=== PATIENT | male | born 1955 | race Caucasian/White ===

== ENCOUNTER 2017-01-14 16:25 | Emergency (ER) | payer MEDICARE ==
--- NOTE | ~2017-01-14 | CR127 ---
[facility] A Service of [facility] & [facility] RADIOLOGY TEXT RESULTS PATIENT: MAAME MEDINA LOCATION: [facility] : 57 UNIT #: [id number] AGE: [address]: Angelo Antoine MD SEX: M ORDER DR: [id number] [facility] [address] [place], [place] [address] [id number] P MR#: [id number] Acc #: [id number] NAME: MAAME MEDINA : 1955 SEX: M STUDY DATE/TIME: 01/14/2017 17:07 UNIT: [facility] ROOM: STUDY DESCRIPTION: CR Foot Complete Min 3 View Rt Attending Physician: Angelo Antoine M.D. Ordering Physician: Ed Doctor [id number] [facility] Primary Care Physician: Trevor Julio M.D. MEDICAL IMAGING REPORT This report is preliminary unless electronic signature is present EXAM Right foot 3 views HISTORY Foot pain for 1 month. Fell. FINDINGS Three views of the right foot demonstrate normal bone alignment. No fracture, joint space narrowing or dislocation. Minimal degenerative changes at the first MTP joint. IMPRESSION No acute findings Dictated by... Don Gama M.D. THIS IS AN ELECTRONICALLY VERIFIED REPORT Don Gama M.D. at 01/14/2017 11:52 PM DFTerrance/marta TD: 01/14/2017 22:07 JOB #: [id number] MEDICAL IMAGING REPORT Page 1 of 1 COPY
--- NOTE | ~2017-01-14 | CR56 ---
[facility] A Service of [facility] & [facility] RADIOLOGY TEXT RESULTS PATIENT: MAAME MEDINA LOCATION: [facility] : 57 UNIT #: [id number] AGE: [address]: Angelo Antoine MD SEX: M ORDER DR: [id number] [facility] [address]. [place], [place] [address] [id number] P MR#: [id number] Acc #: [id number] NAME: MAAME MEDINA. : 1955 SEX: M STUDY DATE/TIME: 01/14/2017 17:08 UNIT: [facility] ROOM: STUDY DESCRIPTION: CR Calcaneus Min 2 Views Rt Attending Physician: Angelo Antoine M.D. Ordering Physician: [facility] Primary Care Physician: Trevor Julio M.D. MEDICAL IMAGING REPORT This report is preliminary unless electronic signature is present EXAM Right calcaneus 3 views HISTORY Ankle. HISTORY Heel pain after fall 1 month ago. FINDINGS 3 views of the right calcaneus demonstrate satisfactory bone alignment. No fracture or joint space narrowing or dislocation. Small posterior calcaneal spur. IMPRESSION No acute findings. Dictated by... Don Gama M.D. THIS IS AN ELECTRONICALLY VERIFIED REPORT Don Gama M.D. at 01/14/2017 11:52 PM DFL/pcl TD: 01/14/2017 22:08 JOB #: [id number] MEDICAL IMAGING REPORT Page 1 of 1 COPY
--- NOTE | ~2017-01-14 | CR21 ---
[facility] A Service of [facility] RADIOLOGY TEXT RESULTS PATIENT: MAAME MEDINA LOCATION: [facility] : 57 UNIT #: [id number] AGE: [address]: Angelo Antoine MD SEX: M ORDER DR: [id number] [facility] [address]. [place], [place] [address] [id number] P MR#: [id number] Acc #: [id number] NAME: MAAME MEDINA. : 1955 SEX: M STUDY DATE/TIME: 01/14/2017 17:08 UNIT: [facility] ROOM: STUDY DESCRIPTION: CR Ankle Min 3 Views Rt Attending Physician: Angelo Antoine M.D. Ordering Physician: [facility] Primary Care Physician: Trevor Julio M.D. MEDICAL IMAGING REPORT This report is preliminary unless electronic signature is present EXAM Right ankle 3 views HISTORY Ankle pain after fall 1 month ago. FINDINGS 3 views right ankle demonstrate satisfactory bone alignment. Mild soft tissue swelling over the lateral malleolus. Small bony spur at the tip of the lateral malleolus. No fracture or dislocation. IMPRESSION No acute findings. Mild soft tissue swelling over the lateral malleolus is similar to 12/31/2016. Dictated by... Don Gama M.D. THIS IS AN ELECTRONICALLY VERIFIED REPORT Don Gama M.D. at 01/14/2017 11:52 PM DFL/pcl TD: 01/14/2017 22:01 JOB #: [id number] MEDICAL IMAGING REPORT Page 1 of 1 COPY
[~2017-01-14 16:25] MED LIST: HYDROCODON-ACE1 EAC5 PO; KLONOPIN1 MG PO; OXYCONTIN30 MG PO; PROZAC40 M1 PO
== END 2017-01-14 19:15 | disposition home or self-care (01) ==
LOC: CED 16:25
DX: M25.571 Pain in right ankle and joints of right foot (principal); I11.0 Hypertensive heart disease with heart failure; I50.9 Heart failure, unspecified; F32.9 Major depressive disorder, single episode, unspecified; F41.9 Anxiety disorder, unspecified; Z88.5 Allergy status to narcotic agent
CPT/HCPCS: 73610; 73630; 73650; 99284